=== PATIENT | female | born 1950 | race Caucasian/White ===

== ENCOUNTER → 2025-08-12 10:10 | Outpatient (REF) | payer BC, SELFPAY ==
[2025-08-12 10:33] VITALS: BP 146/76; BP_SYST 71
[2025-08-12 12:05] VITALS: BP 139/59; BP 144/66; BP_SYST 66
== END ==
LOC: RADI 10:10
PROVIDERS: ATTENDING PHYSICIAN Internal Medicine Hematology & Oncology; FAMILY PHYSICIAN Family Medicine
DX: C20 Malignant neoplasm of rectum (principal)
CPT/HCPCS: 36561; 76937; 77001; 99152; 99153; C1788

== ENCOUNTER → 2025-08-16 19:30 | Outpatient (REF) | payer BC, SELFPAY | LOC: MRI 19:30 | PROVIDERS: ATTENDING PHYSICIAN Internal Medicine Hematology & Oncology; FAMILY PHYSICIAN Family Medicine | DX: I26.99 Other pulmonary embolism without acute cor pulmonale (principal); I82.492 Acute embolism and thrombosis of other specified deep vein of left lower extremity; C20 Malignant neoplasm of rectum | CPT/HCPCS: 72197; A9575 ==